=== PATIENT | male | born 1960 | race Caucasian/White ===

== ENCOUNTER 2017-06-06 17:20 | Emergency (ER) | payer BC ==
[~2017-06-06] VITALS: Ht 167.6 cm; Wt 75.3 kg
[2017-06-06 17:53] VITALS: Ht 167.6 cm; Wt 75.3 kg
[2017-06-07 03:56] VITALS: BP 110/65
== END 2017-06-07 03:57 | disposition home or self-care (01) ==
LOC: ED 17:20
DX: R42 Dizziness and giddiness (principal); H91.92 Unspecified hearing loss, left ear; I10 Essential (primary) hypertension
CPT/HCPCS: J8597